=== PATIENT | male | born 1955 | race Caucasian/White ===

== ENCOUNTER 2020-07-14 13:00 | Outpatient (REF) | payer MEDICARE, BC, SELFPAY ==
[2020-07-14 12:53] LABS: HCT 48.5 % (40.0-50.0); HGB 16.6 g/dL (13.5-17.5); MCH 32.9 pg (27.0-33.0); MCHC 34.2 % (32.0-36.0); MPV 11.7 fL (8.0-11.0); Platelet Count 189 10^3/uL (130-400); RBC 5.05 10^6/uL (4.36-5.78); RDW 12.8 % (11.8-14.1); RDW-SD 45.8 fL; WBC 9.89 10^3/uL (4.4-10.8)
[2020-07-14 13:22] LABS: ALT 50 U/L (16-63); AST 22 U/L (15-37); Alkaline Phosphatase 84 U/L (46-116); Anion Gap 9.6 mmol/L (3-11); BUN 23 mg/dL (7-18); Bilirubin, Total 0.4 mg/dL (0.2-1.0); CO2 27.4 mmol/L (21.0-32.0); CREATININE 0.9 mg/dL (0.70-1.30); Calcium 9.4 mg/dL (8.5-10.1); Calculated LDL 93 mg/dL (<100); Chloride 104 mmol/L (98-107); Cholesterol 166 mg/dL (<200); Glucose 108 mg/dL (74-106); HDL Cholesterol 46 mg/dL (40-60); Potassium 4.5 mmol/L (3.5-5.1); Sodium 141 mmol/L (136-145); TSH 1.07 uIU/mL (0.36-3.74); Total Protein 6.9 g/dL (6.4-8.2); Triglyceride 138 mg/dL (<150)
== END 2020-07-14 13:01 | disposition home or self-care (01) ==
LOC: NCHCN 13:00
PROVIDERS: Visit Provider Registered Nurse
DX: Z00.00 Encounter for general adult medical examination without abnormal findings (principal); I10 Essential (primary) hypertension; I25.10 Atherosclerotic heart disease of native coronary artery without angina pectoris; F10.11 Alcohol abuse, in remission
CPT/HCPCS: 80053; 80061; 85027; 83036; 84443

== ENCOUNTER 2021-04-28 17:48 | Outpatient (REF) | payer MEDICARE, BC, SELFPAY ==
[2021-04-28 21:22] LABS: HCT 48.4 % (40.0-50.0); HGB 16.2 g/dL (13.5-17.5); MCH 32.1 pg (27.0-33.0); MCHC 33.5 % (32.0-36.0); MCV 95.8 fL (80-95); MPV 11.5 fL (8.0-11.0); Platelet Count 201 10^3/uL (130-400); RBC 5.05 10^6/uL (4.36-5.78); RDW 12.8 % (11.8-14.1); RDW-SD 45.2 fL
[2021-04-28 22:00] LABS: Anion Gap 10.7 mmol/L (3-11); BUN 17 mg/dL (7-18); CO2 27.3 mmol/L (21.0-32.0); CREATININE 0.9 mg/dL (0.70-1.30); Calcium 9.5 mg/dL (8.5-10.1); Chloride 102 mmol/L (98-107); Glucose 94 mg/dL (74-106); Potassium 4.4 mmol/L (3.5-5.1); Sodium 140 mmol/L (136-145); TSH 0.85 uIU/mL (0.36-3.74); Vitamin B12 536 pg/mL (193-986)
== END 2021-04-28 17:49 | disposition home or self-care (01) ==
LOC: NCHCN 17:48
PROVIDERS: Visit Provider Registered Nurse
DX: R73.03 Prediabetes (principal); R41.3 Other amnesia; I10 Essential (primary) hypertension
CPT/HCPCS: 80048; 85027; 82607; 83036; 84443

== ENCOUNTER 2021-09-06 16:21 | Outpatient (REF) | payer MEDICARE, BC, SELFPAY ==
[2021-09-08 11:27] LABS: COVID-19 RT-PCR UVMMC Result Negative (Negative)
== END 2021-09-06 16:22 | disposition home or self-care (01) ==
LOC: NCHCN 16:21
PROVIDERS: Visit Provider Registered Nurse
DX: Z20.822 Contact with and (suspected) exposure to COVID-19 (principal); J06.9 Acute upper respiratory infection, unspecified
CPT/HCPCS: U0003; U0005

== ENCOUNTER 2022-12-10 15:01 | Outpatient (REF) | payer MEDICARE, BC, SELFPAY ==
[2022-12-10 16:07] LABS: Anion Gap 9.2 mmol/L (3-11); BUN 20 mg/dL (7-18); CO2 26.8 mmol/L (21.0-32.0); Calcium 9.1 mg/dL (8.5-10.1); Calculated LDL 40 mg/dL (<100); Chloride 105 mmol/L (98-107); Cholesterol 126 mg/dL (<200); Estimated GFR 81.98 (mL/min/1.73m2); Glucose 131 mg/dL (74-106); HDL Cholesterol 43 mg/dL (40-60); Potassium 4.5 mmol/L (3.5-5.1); Sodium 141 mmol/L (136-145); Triglyceride 217 mg/dL (<150)
== END 2022-12-10 15:02 | disposition home or self-care (01) ==
LOC: NCHCN 15:01
PROVIDERS: Visit Provider Registered Nurse
DX: I10 Essential (primary) hypertension (principal); E78.5 Hyperlipidemia, unspecified; R73.03 Prediabetes
CPT/HCPCS: 80048; 80061; 83036

== ENCOUNTER 2022-12-13 18:07 | Outpatient (REF) | payer MEDICARE, BC, SELFPAY ==
[2022-12-13 16:52] LABS: ALT 41 U/L (16-63); AST 17 U/L (15-37); Albumin 4.1 g/dL (3.4-5.0); Alkaline Phosphatase 83 U/L (46-116); Bilirubin, Direct 0.1 mg/dL (0.0-0.2); Bilirubin, Total 0.6 mg/dL (0.2-1.0); Total Protein 6.8 g/dL (6.4-8.2)
[2022-12-14 20:57] LABS: PSA, Screening 2.7 ng/mL (<=4.5)
== END 2022-12-13 18:08 | disposition home or self-care (01) ==
LOC: NCHCN 18:07
PROVIDERS: Visit Provider Registered Nurse
DX: Z12.5 Encounter for screening for malignant neoplasm of prostate (principal); Z86.59 Personal history of other mental and behavioral disorders
CPT/HCPCS: 80076; 84153

== ENCOUNTER 2024-03-06 14:58 | Outpatient (REF) | payer MEDICARE, BC, SELFPAY ==
[2024-03-06 22:06] LABS: Abs Immature Grans 0.03 10^3/uL (0.0-0.06); Absolute Basophil Count 0.05 10^3/uL (0.0-0.2); Absolute Eosinophil Count 0.29 10^3/uL (0.0-0.7); Absolute Lymphocyte Count 2.22 10^3/uL (1.2-3.4); Absolute Monocyte Count 0.65 10^3/uL (0.1-0.8); Absolute Neutrophil Count 5.36 10^3/uL (1.2-6.7); Basophils % 0.6 %; Eosinophils % 3.4 %; HGB 15.8 g/dL (13.5-17.5); Immature Grans % 0.3 %; Lymphocytes % 25.8 %; MCH 33.1 pg (27.0-33.0); MCHC 33.6 % (32.0-36.0); MCV 99 fL (80-95); MPV 11.4 fL (8.0-11.0); Monocytes % 7.6 %; Neutrophils % 62.3 %; Platelet Count 170 10^3/uL (130-400); RBC 4.77 10^6/uL (4.36-5.78); RDW 13.3 % (11.8-14.1); RDW-SD 49.1 fL
[2024-03-06 22:29] LABS: Anion Gap 6.1 mmol/L (3-11); BUN 17 mg/dL (7-18); CO2 31.9 mmol/L (21.0-32.0); CREATININE 1.1 mg/dL (0.70-1.30); Calcium 9.5 mg/dL (8.5-10.1); Calculated LDL 45 mg/dL (<100); Chloride 108 mmol/L (98-107); Cholesterol 126 mg/dL (<200); Estimated GFR 72.67 (mL/min/1.73m2); Glucose 109 mg/dL (74-106); HDL Cholesterol 44 mg/dL (40-60); Potassium 3.9 mmol/L (3.5-5.1); Sodium 146 mmol/L (136-145); Triglyceride 186 mg/dL (<150)
[2024-03-06 22:32] LABS: Hemoglobin A1C 5.8 % (<5.7)
[2024-03-09 21:20] LABS: Free PSA/PSA Ratio 0.19 ratio
== END 2024-03-06 14:59 | disposition home or self-care (01) ==
LOC: NCHCN 14:58
PROVIDERS: Visit Provider Family Medicine
DX: E78.5 Hyperlipidemia, unspecified (principal); R73.03 Prediabetes
CPT/HCPCS: 80048; 80061; 83036; 84154; 85025

== ENCOUNTER 2024-10-08 15:25 | Outpatient (REF) | payer MEDICARE, BC, SELFPAY ==
[2024-10-08 21:13] LABS: HCT 38.5 % (40.0-50.0); HGB 13.3 g/dL (13.5-17.5); MCH 32.5 pg (27.0-33.0); MCHC 34.5 % (32.0-36.0); MCV 94 fL (80-95); MPV 12.1 fL (8.0-11.0); Platelet Count 177 10^3/uL (130-400); RBC 4.09 10^6/uL (4.36-5.78); RDW 12.2 % (11.8-14.1); RDW-SD 42.3 fL; WBC 7.07 10^3/uL (4.4-10.8)
[2024-10-08 21:19] LABS: ESR 6 mm/hr (0-20)
[2024-10-08 21:37] LABS: ALT 54 U/L (16-63); AST 26 U/L (15-37); Albumin 3.6 g/dL (3.4-5.0); Alkaline Phosphatase 79 U/L (46-116); Anion Gap 5.8 mmol/L (3-11); BUN 17 mg/dL (7-18); Bilirubin, Total 0.4 mg/dL (0.2-1.0); CO2 29.2 mmol/L (21.0-32.0); CREATININE 1.8 mg/dL (0.70-1.30); Chloride 105 mmol/L (98-107); Estimated GFR 40.24 (mL/min/1.73m2); Glucose 119 mg/dL (74-106); Potassium 4.2 mmol/L (3.5-5.1); Sodium 140 mmol/L (136-145); TSH (W/Ref FT4) 0.81 uIU/mL (0.36-3.74); Total Protein 6.8 g/dL (6.4-8.2)
[2024-10-08 21:48] LABS: C-Reactive Protein < 0.50 mg/dL (<or=0.5)
== END 2024-10-08 15:26 | disposition home or self-care (01) ==
LOC: NCHCN 15:25
PROVIDERS: Visit Provider Family Medicine
DX: R63.5 Abnormal weight gain (principal); R53.83 Other fatigue; F10.91 Alcohol use, unspecified, in remission; M79.18 Myalgia, other site
CPT/HCPCS: 80053; 85027; 85652; 84443; 86140

== ENCOUNTER 2024-10-13 16:31 | Outpatient (REF) | payer MEDICARE, BC, SELFPAY ==
[2024-10-13 21:46] LABS: Prothrombin Time 9.9 sec (9.1-11.1)
[2024-10-13 22:10] LABS: Reticulocyte 2.5 % (0.5-2.4)
[2024-10-13 22:19] LABS: Iron 100 ug/dL (65-175); Total Iron Binding Capacity 250 ug/dL (250-450); Transferrin Sat 40 % (20-55)
[2024-10-13 22:44] LABS: Ferritin 146 ng/mL (26-388); Folate > 20.0 ng/mL (8.6-20.0); Vitamin B12 430 pg/mL (193-986)
[2024-10-13 22:47] LABS: COMMENT (LAB VIEW ONLY) 21.34 mg/dL; Microalb ug/mg Crea 13.1 ug/mg Cr
== END 2024-10-13 16:32 | disposition home or self-care (01) ==
LOC: NCHCN 16:31
PROVIDERS: Visit Provider Family Medicine
DX: D64.9 Anemia, unspecified (principal); N18.9 Chronic kidney disease, unspecified; F10.90 Alcohol use, unspecified, uncomplicated
CPT/HCPCS: 82043; 82570; 82607; 82728; 82746; 83540; 83550; 85045; 85610

== ENCOUNTER 2025-04-30 12:19 | Outpatient (REF) | payer MEDICARE, BC, SELFPAY ==
[2025-04-30 15:30] LABS: HCT 46.8 % (40.0-50.0); HGB 15.3 g/dL (13.5-17.5); MCH 31.5 pg (27.0-33.0); MCHC 32.7 % (32.0-36.0); MCV 96 fL (80-95); MPV 11.5 fL (8.0-11.0); Platelet Count 160 10^3/uL (130-400); RBC 4.86 10^6/uL (4.36-5.78); RDW 13.2 % (11.8-14.1); RDW-SD 46.9 fL; WBC 8.88 10^3/uL (4.4-10.8)
[2025-04-30 15:55] LABS: Anion Gap 4.4 mmol/L (3-11); BUN 14 mg/dL (9-23); CO2 29.6 mmol/L (20.0-31.0); Calcium 9.4 mg/dL (8.3-10.6); Chloride 108 mmol/L (98-107); Glucose 99 mg/dL (74-106); Potassium 4.6 mmol/L (3.5-5.1); Sodium 142 mmol/L (136-145)
[2025-04-30 17:06] LABS: Hemoglobin A1C 6.1 % (<5.7)
== END 2025-04-30 12:20 | disposition home or self-care (01) ==
LOC: NCHCN 12:19
PROVIDERS: Visit Provider Family Medicine
DX: R73.03 Prediabetes (principal); N18.31 Chronic kidney disease, stage 3a; D64.9 Anemia, unspecified
CPT/HCPCS: 80048; 85027; 83036